=== PATIENT | female | born 1930 | race African-American/Black ===

== ENCOUNTER 2017-06-25 07:16 | Inpatient (IN) | payer MEDICARE, MEDICAID ==
[~2017-06-25] VITALS: Ht 149.9 cm; Wt 80.7 kg
[~2017-06-25 07:16] MED LIST: ALEVE220 MG PO; ALLERGY RELIEF10 M3; APAP650; ASPIRIN EC81 M1; ASPIRIN325; AVALIDE 150-121 EACH; BEE POLLEN500 M1; BRIMONIDINE 0.2%; BYSTOLIC 5 MG5 M1; BYSTOLIC 5 MG5 M1 PO; CELEXA20 MG; CVS FISH OIL 11 EAC3; DILTIAZEM 24HR240 M2 PO; DILTIAZEM 24HR240 MG; DILTIAZEM ER240 M1 PO; DILTIAZEM IV; GARLIC OIL1 EAC1; GLUCOPHAGE1000 MG; GLUCOPHAGE1000 MG PO; GLUCOSA-CHOND-1 EACH; HYDROXYCHLOROQ200 M1; IRBESARTAN-HCT1 EAC1; LAXATIVE5 M1; LIDODERM 5%1 PATC1 TRANSDERM; LOTEMAX5 ML; METFORMIN HCL500 MG; MICARDIS HCT 81 EACH; MICARDIS HCT 81 EACH PO; MOBIC15 MG; NAMENDA 10 MG T10 MG; NAMENDA 10 MG T10 MG PO; NORCO 5-325 TA1 EACH PO; PRAVASTATIN SOD10 MG; PRAVASTATIN SOD10 MG PO; PRED FORTE 1% EY5 M1 OP; PREVACID30 MG; SERTRALINE HCL100 MG; VICODIN 5-5001 EACH PO; XALATAN2.5 ML OP; ZYRTEC
[2017-06-25 07:26] VITALS: BP 164/81
[2017-06-25] MEDS ORDERED: LASIX 20 MG TAB20 MG PO (07:32)
[2017-06-25] MEDS ORDERED: KLOR-CON 1010 MEQ PO (07:33)
[2017-06-25] MEDS ORDERED: MOBIC15 MG PO (07:33)
[2017-06-25] MEDS ORDERED: PAXIL10 MG PO (07:33)
[2017-06-25] MEDS ORDERED: PRAVACHOL20 MG PO (07:34)
[2017-06-25] MEDS ORDERED: APAP650 PO (07:34)
[2017-06-25] MEDS ORDERED: NAMENDA 10 MG T10 MG PO (07:34)
[2017-06-25] MEDS ORDERED: NORVASC5 MG PO (07:34)
[2017-06-25] MEDS ORDERED: OLANZAPINE2.5 MG PO (07:35)
[2017-06-25] MEDS ORDERED: IRBESARTAN-HCT1 EACH PO (07:35)
[2017-06-25] MEDS ORDERED: NITROGLYCERIN0.4 MG SUBLING (07:36)
[2017-06-25] MEDS ORDERED: OMEPRAZOLE 20 M20 M1 PO (07:36)
[2017-06-25] MEDS ORDERED: PRILOSEC 20 MG20 MG PO (07:37)
[2017-06-25] MEDS ORDERED: HYDROXYCHLOROQ200 M1 PO (07:37)
[2017-06-25] MEDS ORDERED: METFORMIN HCL500 MG PO (07:38)
[2017-06-25 08:07] LABS: ABSOLUTE BASOPHILS 0.1 thou/uL (0.0-0.2); ABSOLUTE EOSINOPHILS 0.4 thou/uL (0.0-0.7); ABSOLUTE LYMPHOCYTES 1.5 thou/uL (0.8-5.3); ABSOLUTE MONOCYTES 0.5 thou/uL (0.0-1.2); ABSOLUTE NEUTROPHILS 1.9 thou/uL (1.6-8.1); BASOPHILS 1.3 %; EOSINOPHILS 9.8 %; HEMATOCRIT 38.9 % (37.0-47.0); HEMOGLOBIN 12.6 gm/dL (12.0-15.0); MCH 29.6 pg (26.0-34.0); MCHC 32.4 g/dL (28.0-37.0); MCV 91.3 fL (80.0-100.0); MONOCYTES 11.7 %; MPV 7.8 fl. (7.2-11.1); NUCLEATED RBCS 0 /100WBC; PLATELET COUNT* 181 thou/uL (150-400); POLYS 43.2 %; RBC 4.26 mil/uL (4.20-5.00); RDW-CV 14.1 % (10.5-14.5); WBC 4.5 thou/uL (4.0-11.0)
[2017-06-25 08:16] LABS: ANION GAP 5 mmol/L (7-16); APTT 27.8 Seconds (25.0-31.3); BUN 18 mg/dL (7-18); CALCIUM 8.7 mg/dL (8.5-10.1); CHLORIDE 101 mmol/L (98-107); CO2 30 mmol/L (21-32); CREATININE 0.9 mg/dL (0.6-1.3); GLUCOSE 142 mg/dL (70-99); INR 1.1; POTASSIUM 3.5 mmol/L (3.5-5.1); PROTIME 10.8 Seconds (9.20-11.50); SODIUM 136 mmol/L (136-145)
[2017-06-25 08:27] LABS: ALBUMIN 3.4 g/dL (3.4-5.0); ALKALINE PHOSPHATASE 73 U/L (46-116); LIPASE 54 U/L (73-393); MAGNESIUM 1.4 mg/dL (1.8-2.4); NT-PRO BRAIN NAT PEPTIDE 122 pg/mL (<300); SGOT 23 U/L (15-37); SGPT 25 U/L (30-65); TOTAL BILIRUBIN 0.3 mg/dL (<0.1-1.0); TROPONIN-I LEVEL <0.06 ng/mL (<0.06)
--- NOTE | 2017-06-25 11:55 | EKG ---
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
[2017-06-25 14:39] VITALS: BP 140/62
[2017-06-25 15:09] VITALS: BP 143/69
[2017-06-25 16:35] VITALS: BP 158/55
[2017-06-25 16:39] VITALS: BP 156/54
[2017-06-25 20:00] VITALS: BP 144/56
[2017-06-26 00:06] VITALS: BP 164/82
[2017-06-26 04:15] VITALS: BP 125/58
[2017-06-26 05:53] LABS: ABSOLUTE EOSINOPHILS 0.2 thou/uL (0.0-0.7); ABSOLUTE LYMPHOCYTES 1.4 thou/uL (0.8-5.3); ABSOLUTE MONOCYTES 0.6 thou/uL (0.0-1.2); BASOPHILS 0.8 %; EOSINOPHILS 5.7 %; HEMATOCRIT 38.2 % (37.0-47.0); HEMOGLOBIN 12.3 gm/dL (12.0-15.0); LYMPHOCYTES 31.9 %; MCH 29.7 pg (26.0-34.0); MCHC 32.2 g/dL (28.0-37.0); MONOCYTES 14.4 %; NUCLEATED RBCS 0 /100WBC; PLATELET COUNT* 179 thou/uL (150-400); POLYS 47.2 %; RBC 4.15 mil/uL (4.20-5.00); RDW-CV 14.4 % (10.5-14.5); WBC 4.3 thou/uL (4.0-11.0)
[2017-06-26 06:04] LABS: CALCIUM 9.3 mg/dL (8.5-10.1); CREATININE 0.8 mg/dL (0.6-1.3); POTASSIUM 3.7 mmol/L (3.5-5.1)
[2017-06-26 08:00] VITALS: BP 169/66
[2017-06-26 09:20] VITALS: BP 125/58
[2017-06-26 12:00] VITALS: BP 152/52
[2017-06-26 14:52] VITALS: BP 125/58
--- NOTE | 2017-06-26 16:38 | CON ---
[address] [address] CONSULTATION Name: ROSI DANIELS Room: [address] IN M.R.#: [id number] Admission: 06/25/17 Attend Phys: Isael Arriola MD Discharge: Date of : [birth year] Report #: [id number] THIS REPORT FOR: //name// CC: Isael Valente MD DATE OF SERVICE: 06/25/2017 HISTORY OF PRESENT ILLNESS: The patient is an 87-year-old single black female who I was asked to see in the hospital after she complained of chest pain. The history is obtained from the patient as well as some old records. The patient has had a long history of chest pain. She actually underwent a nuclear stress test in 12/2015 that was ordered by my partner, Dr. Sutherland after she complained of chest pain. Results showed no evidence of ischemia with an ejection fraction of 72%. The images showed no reversible defect with normal contractility. She actually had an echocardiogram 2 years ago 12/2015, ejection fraction 70%, aortic sclerosis, mild mitral regurgitation. The patient is not very active because of her age. She uses a walker. She states she woke up this morning with a burning in her chest. She took a nitroglycerin that seemed to help. She called EMS and brought here. I was asked to see her. She denied the pain radiating down her arms, associated diaphoresis or nausea. She had no shortness of breath. She denies any recent shortness of breath, fever, cough, bleeding. She notes occasional flutter in her chest. No syncope. PAST MEDICAL HISTORY: Significant for carpal tunnel surgery, hysterectomy, hypertension, diabetes. MEDICATIONS: At home consist of Lasix, potassium for swelling, Namenda for memory loss, Pravachol, amlodipine, irbesartan HCTZ, omeprazole, Plaquenil, Prilosec, metformin. ALLERGIES: SHE HAS A PREVIOUS INTOLERANCE TO CODEINE. FAMILY HISTORY: Mother, heart disease. SOCIAL HISTORY: She is , lives in a senior citizen apartment. No smoking. Rarely drinks alcohol. REVIEW OF SYSTEMS: She has had a history of stroke. She had asthma as a child. No history of peptic ulcer disease, liver disease, kidney disease, cancer, psychiatric illness, chronic skin condition. PHYSICAL EXAMINATION: GENERAL: Revealed an elderly frail-appearing black female lying in a stretcher. She [place] [address] CONSULTATION Name: ROSI DANIELS Room: [address]#: [id number] Admission: 06/25/17 Attend Phys: Isael Arriola MD Discharge: Date of : [birth year] Report #: [id number] VITAL SIGNS: She had a blood pressure of 140/60, pulse 70. She is afebrile. HEENT: She was anicteric, conjunctivae pink. Mucous membranes are moist. CHEST: Clear to auscultation. CARDIOVASCULAR: Regular rate and grade 2 systolic ejection murmur. ABDOMEN: Obese, soft, nontender. EXTREMITIES: She had no pedal edema. Dorsalis pedis pulse could not be palpated. SKIN: Cool and dry. ECG this morning showed sinus rhythm, nonspecific ST-segment changes. Workup in the Emergency Room today included a portable chest x-ray showed normal heart size, clear lung blackman, previous CT scan of the head without contrast back in 2009 showed atrophy. LABORATORY WORK: Sodium 136, creatinine 0.9. Liver function studies are normal. Troponin 0.06. Cholesterol in 2016 179, triglyceride 76, HDL 77, LDL 87. TSH in 2016 1.92. White blood cell count 4.5, hemoglobin 12.6. IMPRESSION AND RECOMMENDATIONS: 1. Chest pain. The patient has risk factors for coronary artery disease. Her pain is atypical for angina. No ECG changes. Suspect noncardiac. In light of her advanced age, I would recommend a conservative approach. I would not recommend stress testing nor cardiac catheterization. I would consider discharging the patient to have her followup with her primary care physician. She actually had a nuclear stress test 2 years ago showing no ischemia. 2. Hypertension. The patient is on a calcium caleb, ARB and diuretic. 3. Diabetes. 4. Hyperlipidemia. The patient is on a statin drug. <ELECTRONICALLY SIGNED> By: Oni Bauer MD, FACC 06/26/17 1638 1336 1922Davimily Bauer MD, FACC /nt
[2017-07-29] MEDS ORDERED: HYDROCODONE-AP1 EAC6 PO (09:06)
== END 2017-06-26 15:02 | disposition home or self-care (01) | DRG 313 ==
LOC: M.ERS 07:16 → M.TBA-ER 09:03 → M.2W 09:03
PROVIDERS: Emergency Medicine Emergency Medical Services; ADMIT Internal Medicine
DX: R07.89 Other chest pain (principal); I10 Essential (primary) hypertension; E78.5 Hyperlipidemia, unspecified; K21.9 Gastro-esophageal reflux disease without esophagitis; E11.40 Type 2 diabetes mellitus with diabetic neuropathy, unspecified; Z96.1 Presence of intraocular lens; J45.909 Unspecified asthma, uncomplicated; I25.10 Atherosclerotic heart disease of native coronary artery without angina pectoris; M19.90 Unspecified osteoarthritis, unspecified site; I48.91 Unspecified atrial fibrillation; Z98.49 Cataract extraction status, unspecified eye; Z86.73 Personal history of transient ischemic attack (TIA), and cerebral infarction without residual deficits; Z86.718 Personal history of other venous thrombosis and embolism; Z79.84 Long term (current) use of oral hypoglycemic drugs; Z79.899 Other long term (current) drug therapy; Z90.710 Acquired absence of both cervix and uterus; Z88.5 Allergy status to narcotic agent; Z82.49 Family history of ischemic heart disease and other diseases of the circulatory system

== ENCOUNTER → 2017-07-29 | Day surgery (SDC) | payer MEDICARE, MEDICAID ==
[~2017-07-29] MED LIST changes: +APAP650 PO; +HYDROCODONE-AP1 EAC6 PO; +HYDROXYCHLOROQ200 M1 PO; +IRBESARTAN-HCT1 EACH PO; +KLOR-CON 1010 MEQ PO; +LASIX 20 MG TAB20 MG PO; +METFORMIN HCL500 MG PO; +MOBIC15 MG PO; +NITROGLYCERIN0.4 MG SUBLING; +NORVASC5 MG PO; +OLANZAPINE2.5 MG PO; +OMEPRAZOLE 20 M20 M1 PO; +PAXIL10 MG PO; +PRAVACHOL20 MG PO; +PRILOSEC 20 MG20 MG PO
[2017-07-29 06:28] LABS: HEMOGLOBIN 12.6 gm/dL (12.0-15.0); MCH 29.6 pg (26.0-34.0); MCHC 32.2 g/dL (28.0-37.0); MCV 91.9 fL (80.0-100.0); MPV 7.5 fl. (7.2-11.1); RBC 4.25 mil/uL (4.20-5.00); RDW-CV 14.7 % (10.5-14.5); WBC 5.4 thou/uL (4.0-11.0)
[2017-07-29 06:35] LABS: CALCIUM 8.8 mg/dL (8.5-10.1); POTASSIUM 3.8 mmol/L (3.5-5.1)
[2017-07-29 06:40] LABS: ALBUMIN 3.7 g/dL (3.4-5.0); TOTAL BILIRUBIN 0.3 mg/dL (<0.1-1.0); TOTAL PROTEIN 7.6 g/dL (6.4-8.2)
--- NOTE | 2017-09-15 12:57 | OP ---
[address] [address] OPERATIVE REPORT Name: ROSI DANIELS Room: [facility]#: [id number] Admission: 07/29/17 Attend Phys: Nawaf Valencia DO Discharge: Date of : [birth year] Report #: [id number] THIS REPORT FOR: //name// CC: Nawaf Valente DATE OF SERVICE: 07/29/2017 PREOPERATIVE DIAGNOSIS: Left carpal tunnel syndrome. POSTOPERATIVE DIAGNOSIS: Severe left carpal tunnel syndrome. SURGEON: Nawaf Valencia DO SUPERVISOR FILTER ASSEMBLY: John Mata DO ANESTHESIA: General. ANTIBIOTICS: Weight-appropriate dosing of Ancef IV preoperatively. ESTIMATED BLOOD LOSS: 10 mL. COMPLICATIONS: None. SPECIMENS: None. DRAINS: None. CONDITION: The patient is stable to PACU. INDICATIONS FOR PROCEDURE: The patient is an 87-year-old female who I had originally seen in consultation in clinic for her left carpal tunnel syndrome. She had an EMG several years ago that at that point of time showed gwubzmvq-gf-ocjzmc carpal tunnel syndrome bilaterally. She had the right done but due to life circumstances, she had not pursued the left. 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 At that point in time, I went over further risks and complications associated with carpal tunnel release. I went over those risks not only in the preoperative area, but also in the clinic as well. Please see the clinic note for full list of what risks were discussed at that time as well as today. After addressing questions and concerns that she and her daughter had, she acknowledged and accepted those risks and gave verbal consent to proceed. DESCRIPTION OF PROCEDURE: I asked the patient what extremity was correct, she said the left. I marked that extremity in the presence [place] [address] OPERATIVE REPORT Name: ROSI DANIELS Room: [facility]#: [id number] Admission: 07/29/17 Attend Phys: Nawaf Valencia DO Discharge: Date of : [birth year] Report #: [id number] operative teams and all team members agreed. She was transferred back to the operating suite and placed on the operative table spine. Briefing was performed, indicating correct patient, procedure, site and antibiotics. All team members agreed. General anesthetic was administered. A well-padded tourniquet was placed proximally on the left upper extremity and that extremity was sterilely prepped and draped in standard fashion. An official timeout was performed, indicating correct patient, procedure, site and antibiotics. All team members agreed. We marked out our incision being in line with the radial border of the fourth digit, stopping well short of Tidwell's cardinal line and starting at the distal palmar crease. We Esmarched the extremity and placed tourniquet at 250 mmHg and began our incision. Incision was with 15 blade scalpel and then blunt dissection down to the carpal ligament. Having excellent visualization of the ligament, we then used a 15 blade scalpel to incise, the ligament was very hypertrophied and thick. Once we got through this, we visualized the nerve. We then used scissors to carefully spread and release fully proximally and including into the fascia for full release and then distally we performed full release as well. The nerve was dusky in appearance and did look significantly diseased. We let the tourniquet down. Total tourniquet time was 23 minutes. We maintained hemostasis, irrigated with normal saline thoroughly and our closure was with 4-0 nylon simple interrupted. Prior to closure, our initial count was correct ____ from the procedure as stated with no complications, blood loss and that all counts were correct and final. All team members agreed. Sterile dressings were applied with Xeroform gauze, 4 x 4, Kerlix, Gurvinder wrap. She was successfully extubated and transferred off the operative table and taken to PACU in stable condition. POSTOPERATIVE COURSE AND EVALUATION: I spoke with her daughter after surgery. She had given me permission to do so and updated on her that she was doing well and surgery went well. When I examined the patient, she was resting in PACU, alert, minimal pain. She can move all of her fingers appropriately and her sensation was fully intact. She had good cap refill. I addressed the questions she had, specific instructions written down for them upon discharge. They also have access to my personal number and I have encouraged them to call me with any kind of questions or concerns. <ELECTRONICALLY SIGNED> By: Ankush Carlton DO 09/15/17 1257 0955 Donald Valencia DO /janey
== END | disposition home or self-care (01) ==
LOC: M.SUR 07-23 07:59
PROVIDERS: Student in an Organized Health Care Education/Training Program
DX: G56.02 Carpal tunnel syndrome, left upper limb (principal); Z88.6 Allergy status to analgesic agent; Z79.899 Other long term (current) drug therapy; Z79.891 Long term (current) use of opiate analgesic

== ENCOUNTER 2018-06-09 15:54 | Inpatient (IN) | payer MEDICARE, MEDICAID ==
[~2018-06-09] VITALS: Ht 154.9 cm; Wt 72.1 kg
[2018-06-09 15:58] VITALS: BP 128/81
[2018-06-09 16:52] LABS: ABSOLUTE EOSINOPHILS 0.4 thou/uL (0.0-0.7); ABSOLUTE LYMPHOCYTES 1.9 thou/uL (0.8-5.3); ABSOLUTE MONOCYTES 0.6 thou/uL (0.0-1.2); ABSOLUTE NEUTROPHILS 1.9 thou/uL (1.6-8.1); EOSINOPHILS 8.2 %; HEMATOCRIT 44.1 % (37.0-47.0); HEMOGLOBIN 14.4 gm/dL (12.0-15.0); MCH 30.6 pg (26.0-34.0); MCHC 32.6 g/dL (28.0-37.0); MCV 93.9 fL (80.0-100.0); MONOCYTES 12.4 %; MPV 8.1 fl. (7.2-11.1); NUCLEATED RBCS 0 /100WBC; PLATELET COUNT* 204 thou/uL (150-400); POLYS 39.4 %; RDW-CV 13.5 % (10.5-14.5); WBC 4.8 thou/uL (4.0-11.0)
[2018-06-09 17:00] LABS: APTT 25.8 Seconds (25.0-31.3); PROTIME 10.4 Seconds (9.20-11.50)
[2018-06-09 17:16] LABS: ANION GAP 10 mmol/L (7-16); BUN 11 mg/dL (7-18); CALCIUM 9.3 mg/dL (8.5-10.1); CHLORIDE 96 mmol/L (98-107); CO2 26 mmol/L (21-32); CREATININE 0.9 mg/dL (0.6-1.3); GLUCOSE 118 mg/dL (70-99); POTASSIUM 4.1 mmol/L (3.5-5.1); SODIUM 132 mmol/L (136-145)
[2018-06-09 17:23] LABS: ALKALINE PHOSPHATASE 77 U/L (46-116); LIPASE 49 U/L (73-393); SGOT 19 U/L (15-37); SGPT 20 U/L (30-65); TOTAL BILIRUBIN 0.4 mg/dL (<0.1-1.0); TOTAL PROTEIN 7.2 g/dL (6.4-8.2); TROPONIN-I LEVEL <0.06 ng/mL (<0.06)
[2018-06-09 19:53] VITALS: BP 111/57
[2018-06-09] MEDS ORDERED: REMERON15 MG PO (23:04)
--- NOTE | 2018-06-09 23:05 | NUR ---
88 Y/O FEMALE ADMITTED TO TELEMETRY ROOM 202 WITH AN ADMITTING DIAGNOSIS OF NEW ONSET AFIB. PT DENIES SOA, PAIN, N/V/D. PT IS UP SBA, STEADY GAIT. TRACING AFIB ON MONITOR. DAUGHTER AT BEDSIDE. PT DENIES ANY FURTHER NEEDS. REFER TO COMPUTER CHARTING FOR FURTHER DETAILS. FALL PRECAUTIONS IN PLACE, CLWR.
[2018-06-10] VITALS: BP 112/58
[2018-06-10 04:00] VITALS: BP 116/60
--- NOTE | 2018-06-10 05:31 | NUR ---
PT HAS SLEPT WELL T/O THIS SHIFT. PT CONTINUES TO DENY PAIN, CP, N/V/D, OR SOA. CARDIZEM GTT CURRENTLY INFUSING AT 8MG/HR MAINTAINING A HR BETWEEN 80-90'S. VSS. NO NEW CONCERNS AT THIS TIME.
[2018-06-10 08:21] VITALS: BP 121/68
[2018-06-10 09:33] LABS: URINE BILIRUBIN NEGATIVE (Negative); URINE BLOOD NEGATIVE (Negative); URINE CLARITY CLEAR; URINE COLOR YELLOW; URINE GLUCOSE-RANDOM NEGATIVE (Negative); URINE KETONES NEGATIVE (Negative); URINE LEUKOCYTES-REFLEX TRACE (Negative); URINE NITRITE-REFLEX NEGATIVE (Negative); URINE PROTEIN NEGATIVE (Negative); URINE SPECIFIC GRAVITY 1.025 (1.005-1.030); URINE UROBILINOGEN 0.2 E.U./dl (0.2-1.0)
--- NOTE | 2018-06-10 10:09 | NUR ---
RECEIVED REPORT. ASSUMED CARE OF PT AT 0730. VSS. CARDIAC MONITORING IN PLACE AFIB. AM ASSESSMENT AND VITALS COMPLETED CHARTED. PT ALERT AND OREITNED. PT ON RA. IV CARDIZEM GTT INFUSING AND TITRATED TO 5ML/HR. PT IS UP WITH STAND BY ASSISTANCE TO BATHROOM. PT DENIES ANY PAIN. PT INFORMED OF PLAN OF CARE. PT ANXIOUS TO GO HOME. CALL LIGHT IS WITHIN REACH. WILL CONTINUE TO MONITOR FOR DURATION OF SHFIT.
[2018-06-10 12:00] VITALS: BP 128/54
--- NOTE | 2018-06-10 15:18 | NUR ---
MET WITH PT AND DTR/CLIFTON TO DISCUSS HOME SITUATION/DC PLAN. PT LIVES IN [facility] ALONE. SHE HAS CAREGIVER THRU HER MEDICAID/[employer]APE AGENCY 6HR/5DAYS A WEEK. 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 PT IS INDEPENDENT WITH ADLS. SH HAS HAD HH IN THE PAST BUT DOESN'T THINK SHE NEEDS IT NOW. CLIFTON IS HER DPOA. PT PLANS TO RETURN HOME AT DC
[2018-06-10] MEDS ORDERED: ELIQUIS2.5 MG PO (15:58)
[2018-06-10] MEDS ORDERED: DILTIAZEM HCL90 MG PO (15:59)
[2018-06-10 16:00] VITALS: BP 128/54
--- NOTE | 2018-06-10 16:23 | NUR ---
DISCHARGE ORDERS RECEIVED AND PREPARED. IV AND CARDIAC MONITORING DISCOTNINUED. PT'S SCRIPTS CALLED TO PT'S PHARMACY. PT AND DAUGHTER EDUCATED ON DSICAHRGE INSTRUCTIONS. ALL QUESTIONS AND CONCERNS ANSWERED AT THIS TIME. PT'S PERSOANL BELONGINGS GATHERED AND SENT HOME WITH PT. PT ESCORTED OFF UNIT WITH NURSING STAFF. PT LEFT IN PRIVATE VEHICLE.
--- NOTE | 2018-06-10 16:50 | 2DMMODE ---
[place] [address] 2 D/M-MODE ECHOCARDIOGRAM Name: ROSI DANIELS Room: [address] IN [facility]#: [id number] Admission: 06/09/18 Attend Phys: Aristeo Farnsworth Discharge: 06/10/18 Date of : [birth year] Date of Service: 06/10/18 1650 Report #: [id number] THIS REPORT FOR: //name// APPROVED REPORT Study performed: 06/10/2018 11:13:26 EXAM: Comprehensive 2D, Doppler, and color-flow Echocardiogram Patient Location: In-Patient Room #: 202 Status: routine BSA: 1.71 HR: 79 bpm BP: 121/68 mmHg Rhythm: Atrial Fibrillation Other Information Study Quality: Good Indications Atrial Fibrillation 2D Dimensions IVSd: 11.10 (7-11mm) LVOT Diam: 18.96 (18-24mm) LVDd: 43.01 mm PWd: 9.36 (7-11mm) Ascending Ao: 28.02 (22-36mm) LVDs: 26.71 (25-40mm) Aortic Root: 26.88 mm Volumes Left Atrial Volume (Systole) LA ESV Index: 35.90 mL/m2 Aortic Valve AoV Peak Jamal.: 1.13 m/s AO Peak Gr.: 5.11 mmHg LVOT Max P.36 mmHg AO Mean Gr.: 2.58 mmHg LVOT Mean P.63 mmHg LVOT Max V: 0.92 m/s AO V2 VTI: 20.50 cm LVOT Mean V: 0.59 m/s JOSE ALBERTO (VTI): 2.70 cm2 LVOT V1 VTI: 19.61 cm Mitral Valve MV Decel. Time: 108.59 ms MV PHT: 31.49 ms MVA (PHT): 6.99 [place] [address] 2 D/M-MODE ECHOCARDIOGRAM Name: ROSI DANIELS Room: [address] IN ..#: [id number] Admission: 06/09/18 Attend Phys: Aristeo Farnsworth Discharge: 06/10/18 Date of : [birth year] Date of Service: 06/10/18 1650 Report #: [id number] TDI Medial E' Jamal.: 0.10 m/s Lateral E' Jamal.: 0.10 m/s Pulmonary Valve PV Peak Jamal.: 0.81 m/s PV Peak Gr.: 2.62 mmHg Tricuspid Valve RAP Estimate: 5.00 mmHg TR Peak Gr.: 23.27 mmHg RVSP: 28.00 mmHg PA Pressure: 28.00 mmHg Left Ventricle The left ventricle is normal size. There is normal LV segmental wall motion. There is normal left ventricular wall thickness. Left ventricular systolic function is normal. The left ventricular ejection fraction is within the normal range. LVEF is 60%. This study is not technically sufficient to allow evaluation of the LV diastolic function due to atrial fibrillation. Right Ventricle The right ventricle is normal size. The right ventricular systolic function is normal. Atria Left atrium is mildly dilated. The right atrium size is normal. Aortic Valve Mild aortic valve sclerosis. No aortic regurgitation is present. There is no aortic valvular stenosis. Mitral Valve The mitral valve is normal in structure. Mild mitral regurgitation. No evidence of mitral valve stenosis. Tricuspid Valve The tricuspid valve is normal in structure. Mild tricuspid regurgitation. No pulmonary hypertension. Pulmonic Valve The pulmonary valve is normal in structure. There is no pulmonic valvular regurgitation[place] [address] 2 D/M-MODE ECHOCARDIOGRAM Name: ROSI DANIELS Room: [address] IN [facility]#: [id number] Admission: 06/09/18 Attend Phys: Aristeo Farnsworth Discharge: 06/10/18 Date of : [birth year] Date of Service: 06/10/18 1650 Report #: [id number] The aortic root is normal in size. IVC is normal in size and collapses >50% with inspiration. Pericardium There is no pericardial effusion. <Conclusion> The left ventricle is normal size. There is normal left ventricular wall thickness. Left ventricular systolic function is normal. The left ventricular ejection fraction is within the normal range. LVEF is 60%. This study is not technically sufficient to allow evaluation of the LV diastolic function due to atrial fibrillation. The right ventricle is normal size. Left atrium is mildly dilated. Mild aortic valve sclerosis. No aortic regurgitation is present. There is no aortic valvular stenosis. The mitral valve is normal in structure. Mild mitral regurgitation. The tricuspid valve is normal in structure. IVC is normal in size and collapses >50% with inspiration. There is no pericardial effusion. There is normal LV segmental wall motion. <ELECTRONICALLY SIGNED> By: Shay Reyes MD, FACC 06/10/181649 49 49 Shay Reyes MD, FACC /INF
--- NOTE | 2018-06-10 18:44 | EKG ---
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 : 1930 Requested By: Lauren Grady Order Number: [id number] MD: Pedro Ashby Measurements Intervals [place] Rate: 127 P: [place]: QRS: 16 QRSD: 85 T: 242 QT: 323 QTc: 470 Interpretive Statements Atrial fibrillation with rapid ventricular response rate Repolarization abnormality, prob rate related Compared to ECG 06/25/2017 07:20:19 Early repolarization now present Sinus rhythm no longer present T-wave abnormality no longer present Electronically Signed On 06-10-2018 18:44:37 DIETETIC TECHNICIAN by Pedro Ashby [email or web address] <ELECTRONICALLY SIGNED> By: Pedro Ashby MD, FACC 06/10/18 1844 1602 1602 Pedro Ashby MD, FACC /EPI
== END 2018-06-10 16:24 | disposition home or self-care (01) | DRG 309 ==
LOC: M.ERS 15:54 → M.2W 17:02 → M.TBA-ER 17:02 → M.2W 19:54
PROVIDERS: Physician Assistant; ADMIT Internal Medicine
DX: I48.91 Unspecified atrial fibrillation (principal); E87.1 Hypo-osmolality and hyponatremia; I50.32 Chronic diastolic (congestive) heart failure; I13.0 Hypertensive heart and chronic kidney disease with heart failure and stage 1 through stage 4 chronic kidney disease, or unspecified chronic kidney disease; K21.9 Gastro-esophageal reflux disease without esophagitis; Z96.1 Presence of intraocular lens; E11.40 Type 2 diabetes mellitus with diabetic neuropathy, unspecified; F03.90 Unspecified dementia, unspecified severity, without behavioral disturbance, psychotic disturbance, mood disturbance, and anxiety; F41.9 Anxiety disorder, unspecified; E78.00 Pure hypercholesterolemia, unspecified; E11.22 Type 2 diabetes mellitus with diabetic chronic kidney disease; N18.2 Chronic kidney disease, stage 2 (mild); E78.5 Hyperlipidemia, unspecified; Z88.8 Allergy status to other drugs, medicaments and biological substances; Z79.899 Other long term (current) drug therapy; Z86.718 Personal history of other venous thrombosis and embolism; Z86.73 Personal history of transient ischemic attack (TIA), and cerebral infarction without residual deficits; Z98.49 Cataract extraction status, unspecified eye